=== PATIENT | female | born 1975 | race Caucasian/White ===

== ENCOUNTER 2023-11-03 02:43 | Day surgery (SDC) | payer BC, SELFPAY ==
[2023-10-29 15:48] VITALS: BMI 34.7
--- NOTE | 2023-10-29 16:16 | PC.NURSE ---
Report to the Outpatient Waiting Room, entrance under the green pavilion located off [facility], at 0900 on 11-03-23. Planned Procedure Time: 1100. Time changes happen often and if your time is changed the preop area will call you the afternoon before. - You and your visitor will be asked to self-screen and do not enter if you have any COVID symptoms. - A mask is optional within the hospital at this time. Patients may have clear liquids (water, carbonated beverages, clear teas, apple juice) until 3 hours prior to surgery with a maximum of 20 ounces. 0800 - No food from midnight until time of surgery - Infants may have breast milk until 4 hours before surgery, formula 6 hours prior to surgery. - Children will be allowed to drink immediately following surgery. If applicable, please bring a bottle or sippy cup to assist with drinking. Juice, water, soda, and popsicles are readily available. For infants on formula, please bring formula the day of surgery. Pacifiers are allowed. Take the following medications with a SIP of water the morning of surgery: None DO NOT STOP ANY OF YOUR OTHER PRESCRIPTION MEDICATIONS PRIOR TO SURGERY ?EXCEPT THE FOLLOWING Medications to discontinue per physician: vitamins and supplements; semaglutide Date to take last dose: 10-31-23; patient told not to take dose today and hold off until after surgery Please no make-up, nail yakut, hairspray, perfume, deodorant, or body powder the day of surgery. No jewelry (including any body piercings) or valuables the day of surgery, leave them at home. Please take a shower or bath the night before, or the morning of, surgery with an antibacterial soap. Wear comfortable, loose fitting clothing. Children are encouraged to wear pajamas. - Jewelry must be removed prior to entering the operating room. Rings and piercings that are not removed may be cut off. - The hospital will not accept responsibility for valuables. - Please leave all valuables, including medications, at home the day of surgery. If you are going home after surgery, a licensed tanker truck driver must drive you home. - NO public transportation without another adult if you receive anesthesia. - We recommend that an adult stay with you for 24 hours following discharge. - We also recommend that you do not drive, make important decision, drink alcoholic beverages, or take any drugs that were not prescribed by your health care provider for at least 24 hours after your discharge time. For Pediatric surgeries, we recommend two adults accompany the child home. Follow any additional instructions given to you from your surgeon. If you or anyone in your household have experienced Covid symptoms in the past week, please notify your surgeon or the nurse liaison at the phone number below for possible testing. Telephone instructions given to Bebe Shaver and asked if any additional questions and then verbalized understanding. Patient advised to call surgeon office or pre surgery nurse liaison [phone] if any additional questions.
[2023-11-03] VITALS (7 sets, daily range): BP systolic 101–125; BP diastolic 67–80; PULSE 71–82; RESP 14–20; TEMP 36.1–36.2; O2SAT 98–100
--- NOTE | 2023-11-03 07:33 | WPDHPUPDATE1 ---
History and Physical Update Update Date/Time: 11/03/23 07:33 History and Physical has been reviewed, including an updated exam of the patient. There are NO changes in the patient's condition. Risks, benefits, and alternatives have been discussed and questions answered. Patient agrees to proceed with procedure.
--- NOTE | 2023-11-03 07:34 | PM.HPGS ---
History of Present Illness History of Present Illness Consent: Risks, benefits, and alternatives have been discussed and questions answered. Patient agrees to proceed with procedure. Chief complaint: Lt Ovarian Mass Narrative: Bebe Shaver is a 48 year old female with a a left ovarian cyst measuring 5cm which has increased slightly over time. CA 125, CA 19-9, and CEA markers are all normal. The patient is without symptoms. The plan is for laparoscopic left oophorectomy. Risks of infection, bleeding, injury to internal organs, and anesthesia were reviewed. Patient voices understanding and agrees to proceed. Review of Systems Review of Systems: not repeated day of surgery; patient states no changes in status PMFSH Past Medical History Medical History (Updated 11/03/23 @ 08:06 by Zeenat Zamarripa MD) GERD (gastroesophageal reflux disease) (normal spontaneous vaginal delivery) x4 Status post hysteroscopy Surgical History Surgical History (Updated 11/03/23 @ 08:05 by Zeenat Zamarripa MD) H/O rhinoplasty History of x1 for twin History of tonsillectomy Social History Social History Smoking status: Never smoker Second hand tobacco smoke exposure: No Alcohol intake: never Substance use: never Substance use type: does not use Living arrangements: with family Spiritual care concerns: No Meds Home Medications and Allergies Home Medications Medication Instructions Recorded Confirmed Type calcium carbonate 300 mg (750 mg) 300 mg PO BID PRN heart burn 10/29/23 10/29/23 History chewable tablet (Tums) magnesium citrate,mag oxide 250 mg 250 mg PO HS 10/29/23 10/29/23 History capsule omeprazole 10 mg capsule,delayed 10 mg PO DAILY PRN Acid Reflux 10/29/23 10/29/23 History release semaglutide (weight loss) 0.5 0.5 mg subcut WEEKLY 10/29/23 10/29/23 History mg/0.5 mL subcutaneous pen injector Allergies Allergy/AdvReac Type Severity Reaction Status Date / Time No Known Allergies Allergy Verified 10/29/23 15:34 Exam Const: General: healthy appearing and alert Orientation/consciousness: patient oriented x3 Resp: Effort & Inspection: normal respiratory effort GI: GI Palp: Yes Soft to palpation, No Tenderness to palpation present (GI) and No Palpable mass present : External Female Exam: normal external appearance Speculum Exam - Vagina: normal appearance of the vagina and normal vaginal discharge Speculum Exam - Cervix: normal appearance of the cervix Bimanual exam- vagina & uterus: uterine size normal and consistency normal Bimanual Exam- Adnexa, other: normal adnexae and No adnexal tenderness Neuro: General: patient oriented x3 Assessment and Plan Assessment and plan (1) Left ovarian cyst: Code(s): N83.202 - Unspecified ovarian cyst, left side Status: Acute Assessment and Plan: Due to the complex appearance of the cyst and the increasing size the plan is for laparoscopic left oophorectomy.
[2023-11-03] MEDS: ACETAMINOPHEN 500 MG TABLET 1000 MG PO (09:17)
[2023-11-03] MEDS: KETOROLAC 15 MG/ML VIAL (*BKC) IV PUSH (09:38)
--- NOTE | 2023-11-03 10:24 | P.PNAN_ITS ---
Anes - Initial Pre Proc Eval Procedure: Operation Date: 11/03/23 11:00 Proposed Procedures p Laparoscopic Left Oophorectomy - Zeenat Zamarripa MD Date/Time: 11/03/23 10:24 Surgeon: Zeenat Zamarripa MD Pre Op Diagnosis: Lt Ovarian Mass Patient Data Age: 48 Gender: F Height: 1.7 m Weight: 99.85 kg Last Vital Signs Temp 36.2 C L 11/03/23 09:15 Pulse 71 11/03/23 09:15 Resp 20 11/03/23 09:15 BP 113/80 11/03/23 09:15 Pulse Ox 100 11/03/23 09:15 O2 Del Method Room Air 11/03/23 09:15 Allergies Allergy/AdvReac Type Severity Reaction Status Date / Time No Known Allergies Allergy Verified 11/03/23 09:15 Home Medications Medication Instructions Recorded Confirmed Type calcium carbonate 300 mg (750 mg) 300 mg PO BID PRN heart burn 10/29/23 11/03/23 History chewable tablet (Tums) magnesium citrate,mag oxide 250 mg 250 mg PO HS 10/29/23 11/03/23 History capsule omeprazole 10 mg capsule,delayed 10 mg PO DAILY PRN Acid Reflux 10/29/23 11/03/23 History release semaglutide (weight loss) 0.5 0.5 mg subcut WEEKLY 10/29/23 11/03/23 History mg/0.5 mL subcutaneous pen injector Patient hx anesthesia problems: none Family hx anesthesia problems: none Results Review: All pre-operative results and documents have been reviewed as part of the pre- operative evaluation. [facility] Past Medical History Medical History GERD (gastroesophageal reflux disease) (normal spontaneous vaginal delivery) x4 Status post hysteroscopy Surgical History Surgical History H/O rhinoplasty History of x1 for twin History of tonsillectomy Social History Social History Smoking status: Never smoker Second hand tobacco smoke exposure: No Alcohol intake: never Substance use: never Substance use type: does not use Living arrangements: with family Spiritual care concerns: No Anes - Eval Final PreProcedure Day of Procedure 11/03/23 10:24 Patient weight: obese Heart: regular rate and rhythm Lungs: clear to auscultation Airway: Mallampati scale class 1 Neurological: alert and oriented Last oral intake: >/= 8 hours ASA classification: II Emergent: no Anesthetic plan: proceed Anesthesia type and monitoring: general ETT and standard monitoring Results Review: All pre-operative results and documents have been reviewed as part of the pre- operative evaluation. Informed Consent: The patient's anesthetic plan and its attendant risks and benefits were discussed with the patient/family/POA. Questions were solicited and answers provided to the satisfaction of the patient/family/POA.
--- NOTE | 2023-11-03 11:45 | W.PM.PROC2 ---
Procedure Note - Detailed Date of Procedure 11/03/23 Pre-op Diagnosis complex left ovarian mass Post-op Diagnosis Same ( plus extensive left adnexal adhesions) Procedure Performed laparoscopic left oophorectomy laparoscopic adhesiolysis Surgeon Zeenat Zamarripa MD Anesthesia General Findings right tube and ovary appeared normal uterus appears normal left adnexa is entirely encased in omentum left adnexa is adherent to the left pelvic sidewall Description of Procedure The patient is taken to the operating room and placed under anesthesia in the dorsal lithotomy position. She was prepped and draped in the usual sterile fashion. The bladder was drained with a red rubber catheter. The bivalve speculum was placed in vagina and the cervix grasped on the anterior lip a tenaculum. The acorn manipulator was placed. The speculum was removed. Attention was turned to the abdomen. A vertical skin incision was made with a scalpel at the base of the umbilicus. The abdomen is tented and the Veress needle placed. Water drop test is normal and opening patient pressure was 7mmHg. Pneumoperitoneum was obtained to a patient pressure of 15mmHg. Two skin incisions were made at the symphysis pubis one to the left and one to the right. Under direct visualization 5mm trocars were placed through the lower ports. The patient is placed in Trendelenburg and the right adnexa are easily visualized and brought into the surgical field and appeared normal. The left adnexa is completely covered in omental adhesions. Extensive left adnexal adhesiolysis was performed using blunt dissection and using the LigaSure. Once the ovary was free from the adhesions the utero-ovarian ligament clamped, cauterized, and cut using the LigaSure device. The left lower port was exchanged with a 10mm port. An Endo-Catch bag was placed. The ovary is then placed in an Endo-Catch bag. The port and hardware of the Endo-Catch bag are removed. The bag was pulled through the lower uterine incision. The left adnexal region was inspected and noted to be hemostatic. The fascial incision was extended in the left lower port to approximately 3cm. The bag is turned inside out and suction obtained. The mass is punctured with a scalpel and clear fluid is released and suctioned immediately. There was no spill. The mass collapsed and the ovary was removed through the lower port. The fascial edges were grasped with Damonsner was and the fascia closed using 0 Vicryl in a running fashion. The pneumoperitoneum was reduced and the remaining ports are removed. All skin incisions were closed using 4-0 Vicryl in a subcuticular fashion using Dermaflex as well. Sponge, needle, and instrument counts are correct per the OR staff. Patient is awakened from anesthesia and taken to recovery in stable condition. Estimated Blood Loss 5 Drains No Packing No Pathology Yes ( Left ovary) Complications No immediate complications Condition Stable Disposition PACU
[2023-11-03] MEDS: LACTATED RINGERS 1,000 ML 30 ML IV CONT ×2 (11:58→12:35)
[2023-11-03] MEDS: oxyCODONE HCL (*CRX) 5 MG TAB IR PO (13:08)
== END 2023-11-03 13:35 | disposition home or self-care (01) ==
PROVIDERS: PCP Family Medicine; Visit Provider Obstetrics & Gynecology Gynecology
PROC: (CPT 49320; principal; 2023-11-03 11:00)
DX: D27.1 Benign neoplasm of left ovary (principal); K21.9 Gastro-esophageal reflux disease without esophagitis; Z79.85 Long-term (current) use of injectable non-insulin antidiabetic drugs; E66.9 Obesity, unspecified; Z68.34 Body mass index [BMI] 34.0-34.9, adult
CPT/HCPCS: 58661; 88305; A9270; J1100; J1885; J2250; J2405; J2704; J3010; J7030; J7120